=== PATIENT | male | born 1955 | race Caucasian/White ===

== ENCOUNTER 2024-11-18 17:52 | Outpatient (CLI) | payer MEDICARE, SELFPAY ==
--- NOTE | 2024-11-18 18:15 | MR_ITS ---
[address] [address] Phone:?[phone] Fax:?[phone] Referring Physician Information: Bernard Ram M.D. [id number] [facility] [address] Phone:?[phone] Fax:?[phone] Patient:Yessenia Brito D.O.B:?1955 Sex:?Male Phone:?[phone] [facility] MRN:?[id number] Exam Date:?11/18/2024 EXAM: MRI of the RIGHT KNEE, without contrast CLINICAL HISTORY: Ongoing right knee pain. Suspect meniscal tear. COMPARISONS: Plain radiographs 11/17/2024. TECHNICAL: MR sequences of the right knee: sagittals: PD, PDFS coronals: PD, STIR axials: PD, T2 FS CONTRAST: None SEDATION: None FINDINGS: Bones: No fracture, bone marrow contusion, or other suspicious bone marrow signal abnormality. Patellofemoral joint: Cartilage: Intact. Retinacula: The medial and lateral retinacula are intact. Fat pads: The infrapatellar, quadriceps, and prefemoral fat pads are unremarkable. Knee joint: Effusion: Small right knee joint effusion. Popliteal cyst: None. Intra-articular bodies: None. Posteromedial corner: The semimembranosus and pes anserine tendons are intact. Medial compartment: Medial meniscus: 3.0 cm in length inferiorly surfacing oblique flap tear from the body through posterior horn of the medial meniscus with a 6 mm in length by 3 mm width flap of torn meniscal tissue from the body/posterior horn junction flipped into the medial gutter. Cartilage: Intact. Lateral compartment: Lateral meniscus: 1.0 cm in length free edge surfacing horizontal tear of the body of the lateral meniscus. Cartilage: 1.6 x 1.2 cm area of grade II chondromalacia over the central portion of the lateral tibial plateau. Ligaments: Anterior cruciate ligament: Intact. Posterior cruciate ligament: Intact. Medial collateral ligament: Intact. Posterior oblique ligament: Intact. Fibular collateral ligament: Intact. Posterolateral corner: Concealed slitlike split longitudinal intrasubstance/interstitial tear within the proximal portion of the popliteus tendon best seen on coronal images 21 and 22. The distal biceps femoris tendon, popliteus muscle, arcuate ligament, and popliteofibular for ligament are intact. The iliotibial band is intact. Extensor mechanism: Patellar tendon: Intact. Quadriceps tendon: Intact. IMPRESSION: 1. 3.0 cm in length inferiorly surfacing oblique flap tear from the body through posterior horn of the medial meniscus with a 6 x 3 mm flap of torn meniscal tissue from the body/posterior horn junction flipped into the medial gutter. 2. 1.0 cm in length free edge surfacing horizontal tear of the body of the lateral meniscus. 3. 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 4. Concealed slitlike split longitudinal intrasubstance/interstitial tear within the proximal portion of the popliteus tendon. 5. Small right knee joint effusion. RCB Electronically signed on 11/19/2024 9:05:00 AM by Adalberto Bagley M.D.
== END 2024-11-18 17:53 | disposition home or self-care (01) ==
LOC: MRI 17:53
PROVIDERS: Visit Provider Orthopaedic Surgery
DX: M25.561 Pain in right knee (principal); S83.241A Other tear of medial meniscus, current injury, right knee, initial encounter; S83.281A Other tear of lateral meniscus, current injury, right knee, initial encounter; M94.261 Chondromalacia, right knee; M25.461 Effusion, right knee
CPT/HCPCS: 73721

== ENCOUNTER 2024-12-30 07:08 | Day surgery (SDC) | payer MEDICARE, SELFPAY ==
[2024-12-30] VITALS (11 sets, daily range): BP systolic 109–142; BP diastolic 66–91; PULSE 42–50; RESP 14–18; TEMP 36.1–36.6; O2SAT 96–100; BMI 23.8
[2024-12-30] MEDS: LACTATED RINGERS 1000 ML 1,000 ML 100 ML IV (07:28)
[2024-12-30] MEDS: SODIUM CHLORIDE 0.9 % (FLUSH) 10 ML SYRINGE IVF (07:28)
[2024-12-30] MEDS: CEFAZOLIN 1 GM inj IVP (08:05)
[2024-12-30] MEDS: BUPIVACAINE 0.25% 30 ML INJECTION (08:36)
--- NOTE | 2024-12-30 08:40 | P.ORPRC_ITS ---
Procedure Note Date of procedure: 12/30/24 Procedure: PREOPERATIVE DIAGNOSIS: Right knee medial and lateral meniscus tear POSTOPERATIVE DIAGNOSIS: Right knee medial and lateral meniscus tear NAME OF OPERATION: Right knee arthroscopic partial medial and lateral meniscectomy SURGEON: Bernard Ram MD OCCUPATIONAL THERAPIST REHAB MANAGER: Eden Parker PA-C ANESTHESIA: Spinal ESTIMATED BLOOD LOSS: 0 mL COMPLICATIONS: None SPECIMENS: None DRAINS: None PREOPERATIVE ANTIBIOTICS: Ancef 2 gram INDICATIONS: The patient is a 69-year-old with a history of right knee pain. MRI scan is consistent with a medial and lateral meniscus tear. Despite appropriate nonoperative management, including activity modification, antiinflammatories, [id number] pain medication, bracing, physical therapy, and injections they continue to have pain and disability. Operative intervention was offered. The risks, benefits and expected outcomes were discussed in detail. These included but were not limited to: Infection, bleeding, injury to blood vessel or nerve, venous thromboembolism. All questions were answered to their satisfaction. PROCEDURE: Spinal anesthesia was administered. The patient was placed supine on the operating room table. The right lower extremity was prepped and draped in the usual sterile fashion. The limb was exsanguinated with the Billy bandage. The pneumatic tourniquet was inflated to 300 mmHg. A standard anterolateral portal was established. The arthroscope was introduced. The working portal was established anteromedially. Diagnostic arthroscopy was performed with findings as follows: The suprapatellar pouch is normal. Articular surface on the patella is normal. Articular surface on the trochlea is normal. The medial gutter is normal. The medial compartment shows grade 1 change on both sides of the joint. The medial meniscus has a complex degenerative tear of the posterior horn, into the midbody. This primarily consists of horizontal cleavage and undersurface radial tearing. There appeared to be an unstable flap at the midbody, rolled under the rest of the meniscus. The notch shows the ACL to be intact. The lateral compartment shows normal articular cartilage on the lateral femoral condyle and lateral tibial plateau. The lateral meniscus has degenerative fraying of the leading edge of midbody. The lateral gutter is normal. The posterior horn and midbody of the medial meniscus was debrided to a stable base using a christina through both portals. Likewise, the leading edge of the midbody and undersurface of the posterior horn of the lateral meniscus was debrided with the shaver through both portals. Arthroscopic instruments were removed, the portal sites were Steri-Stripped closed, the knee was infiltrated with 30 mL of 0.25% Marcaine without epinephrine. A dry dressing was applied, the tourniquet was released. Sponge and needle counts were correct x 2. The patient tolerated the procedure well. There were no apparent complications. They were carefully transferred to the hospital bed and taken to the postanesthesia care unit in satisfactory condition. PLAN: The patient will be discharged to home. They may weightbear as tolerates. Range of motion will be unrestricted. They will follow up in the office next week for a wound check.
--- NOTE | 2024-12-30 09:41 | P.ANES_ITS ---
Anesthesia Charges Start Date/Time Anesthesia Start Date: 12/30/24 Anesthesia Start Time: 07:57 Stop Date/Time Anesthesia Stop Date: 12/30/24 Anesthesia Stop Time: 08:50 Coding CPT Codes CPT Codes: ANESTH KNEE JOINT SURGERY - 87129 ([id number]) P2 - PATIENT W/MILD SYST DISEASE, QK - HEAT REGULATOR 2-4 CNCRNT ANES PROC, QX - RAILS DEVELOPER SVC W/ MD MED DIRECTION
--- NOTE | 2024-12-30 09:41 | W.ANESCHARGE ---
Anesthesia Charges Start Date/Time Anesthesia Start Date: 12/30/24 Anesthesia Start Time: 07:57 Stop Date/Time Anesthesia Stop Date: 12/30/24 Anesthesia Stop Time: 08:50 Coding CPT Codes CPT Codes: ANESTH KNEE JOINT SURGERY - 61158 ([id number]) P2 - PATIENT W/MILD SYST DISEASE, QK - REFUGE MANAGER 2-4 CNCRNT ANES PROC, QX - OPTOMETRY DOCTOR SVC W/ MD MED DIRECTION
--- NOTE | 2024-12-30 10:03 | P.ANES_ITS ---
Anesthesia Charges Start Date/Time Anesthesia Start Date: 12/30/24 Anesthesia Start Time: 07:57 Stop Date/Time Anesthesia Stop Date: 12/30/24 Anesthesia Stop Time: 08:50 Coding CPT Codes CPT Codes: ANESTH KNEE JOINT SURGERY - 44362 ([id number]) P2 - PATIENT W/MILD SYST DISEASE, QK - TOOLING MECHANIC 2-4 CNCRNT ANES PROC, QX - LEGAL CASHIER SVC W/ MD MED DIRECTION
--- NOTE | 2024-12-30 10:03 | W.ANESCHARGE ---
Anesthesia Charges Start Date/Time Anesthesia Start Date: 12/30/24 Anesthesia Start Time: 07:57 Stop Date/Time Anesthesia Stop Date: 12/30/24 Anesthesia Stop Time: 08:50 Coding CPT Codes CPT Codes: ANESTH KNEE JOINT SURGERY - [id number] ([id number]) P2 - PATIENT W/MILD SYST DISEASE, QK - MANAGER RETAIL STORE 2-4 CNCRNT ANES PROC, QX - COPIER AND PRINTER FIELD TECHNICIAN SVC W/ MD MED DIRECTION
== END 2024-12-30 10:46 | disposition home or self-care (01) ==
LOC: OR 07:08
PROVIDERS: Visit Provider Orthopaedic Surgery
PROC: (CPT 29870; principal; 2024-12-30 08:15)
DX: M23.221 Derangement of posterior horn of medial meniscus due to old tear or injury, right knee (principal); M23.251 Derangement of posterior horn of lateral meniscus due to old tear or injury, right knee
CPT/HCPCS: 29880; 01400; J0665; J0690; J1100; J2250; J2405; J2704; J7120